=== PATIENT | female | born 1990 | race African-American/Black ===

== ENCOUNTER 2019-10-10 10:43 | Outpatient (RCR) | payer OTHER, SELFPAY | END 2020-01-08 23:59 | disposition home or self-care (01) | LOC: ANHLAB 10:43 | PROVIDERS: Visit Provider Obstetrics & Gynecology | DX: O20.0 Threatened abortion (principal); Z3A.00 Weeks of gestation of pregnancy not specified | CPT/HCPCS: 36415; 85461 ==

== ENCOUNTER 2020-04-25 05:58 | Observation (INO) | payer OTHER, MEDICAID, SELFPAY ==
[2020-04-25 06:16] VITALS: BP 131/97; PULSE 84
[2020-04-25 06:31] VITALS: BP 136/94; PULSE 75
[2020-04-25 06:45] VITALS: BMI 33.5
--- NOTE | 2020-04-25 06:45 | OBADM ---
This patient, Pita Bhandari, admitted to the OB room Labor/Delivery/Recovery 106 for observation. Patient/family oriented to hospital policies and general routines including ID bracelet, bed and alarms, visiting hours, pain management, procedures, bathroom and other care routines, personal items, smoking policy, room service/diet, and visiting hours. Patient/Family are encouraged to report perceived risks to care and to ask questions if they do not understand what they are told or what they should do.
[2020-04-25 06:46] VITALS: BP 117/91; PULSE 86
[2020-04-25 07:01] VITALS: BP 120/85; PULSE 80
[2020-04-25 07:20] VITALS: BP 124/83; PULSE 95
[2020-04-25 07:31] VITALS: BP 125/90; PULSE 88
[2020-04-25 07:33] LABS: Glucose Point of Care 90 (65-105)
--- NOTE | 2020-05-21 20:49 | PM.OBTRLD ---
OB - Triage/Final Diagnosis Evaluation Laboratory results: Laboratory Tests 04/25/20 07:26 POC Capillary Glucose 90 Final Diagnosis (1) contractions: Code(s): O47.9 - False labor, unspecified Status: Acute
== END 2020-04-25 07:51 | disposition home or self-care (01) ==
PROVIDERS: Admitting Provider Obstetrics & Gynecology; Visit Provider Obstetrics & Gynecology
DX: O47.9 False labor, unspecified (principal); Z3A.00 Weeks of gestation of pregnancy not specified
CPT/HCPCS: G0378; G0379

== ENCOUNTER 2020-05-07 13:41 | Inpatient (IN) | payer OTHER, MEDICAID, SELFPAY ==
[2020-05-07] VITALS (20 sets, daily range): BP systolic 123–142; BP diastolic 79–100; PULSE 88–105; TEMP 37.1; BMI 34.0
[2020-05-07] MEDS: LACTATED RINGERS 1,000 ML 125 ML IV CONT (16:26)
[2020-05-07] MEDS: AMPICILLIN 2 GM/NS 100 ML 2 GM/100 ML BAG IVPB (16:27)
[2020-05-07] MEDS: DINOPROSTONE 10 MG VAG INSERT VAGINAL (16:28)
[2020-05-07 16:40] LABS: Hematocrit 33.1 % (37.0-47.0); Hemoglobin 10.5 g/dL (12.0-15.0); Mean Corpuscular HGB Conc 31.7 g/dl (32-36); Mean Corpuscular Volume 85.1 fl (80-100); Mean Platelet Volume 10.6 fl (7.4-10.4); Platelet Count Result 257 k/mm3 (150-375); Red Blood Count 3.89 M/mm3 (4.2-5.4); Red Cell Distribution Width 16.9 % (11.5-14.5); White Blood Count 11.6 K/mm3 (4.5-10.0)
[2020-05-07 16:51] LABS: Alanine Aminotransferase 34 U/L (4-35); Albumin Level 3.5 g/dL (3.5-5.1); Alkaline Phosphatase 135 U/L (38-126); Anion Gap 7 mmol/L (8-16); Aspartate Amino Transferase 43 U/L (14-36); Bilirubin,Total 0.7 mg/dL (0.2-1.3); Blood Urea Nitrogen 6 mg/dL (7-17); Calcium 9.1 mg/dL (8.4-10.2); Carbon Dioxide 22 mmol/L (22-30); Chloride 103 mmol/L (98-107); Estimated Glomerular Filt Rate > 60; Glucose 108 mg/dL (65-105); Potassium 3.9 mmol/L (3.4-5.0); Sodium 132 mmol/L (137-145)
[2020-05-07 17:10] LABS: Total Cells Counted 100
[2020-05-07 17:11] LABS: Eosinophils Absolute Manual 0.34 K/mm3 (0.02-0.5); Eosinophils Percent Manual 3 % (0-4); Lymphocytes Absolute Manual 2.55 K/mm3 (1.1-4.5); Lymphocytes Percent Manual 22 % (18-44); Metamyelocytes Percent 3 %; Monocytes Absolute Manual 1.16 K/mm3 (0.1-0.90); Monocytes Percent Manual 10 % (3-9)
[2020-05-07 17:12] LABS: Neutrophils Percent Manual 62 % (46-73)
[2020-05-07 17:13] LABS: Atypical Lymphocytes Present; Platelet Estimate Adequate (Adequate)
--- NOTE | 2020-05-07 18:09 | WPDOBADMIT ---
Obstetrics - Admit Note Admission Note: record reviewed. No pertinent additions to the history and/or any subsequent changes in the physical findings that are not consistent with the expected course of the were found. Additions to the history and/or subsequent changes in the physical findings follow. PIH- mild pressures- normal labs. IOL. Cervix unfavorable, cervidil. Discussed POC with pt and RN. FHT category 1.
--- NOTE | 2020-05-07 19:25 | WPDANESEPP ---
Anes - Eval Pre Procedure Procedure: Labor epidural Date/Time: 05/07/20 19:25 Surgeon: Luis M Preop Diagnosis: Abd pain with contractions Pre Op Diagnosis: Induction of Labor Patient Data Age: 29 Gender: F Height: 5 ft 2 in Weight: 84.5 kg Last Vital Signs Pulse 105 H 05/07/20 19:00 BP 137/100 H 05/07/20 19:00 Allergies Allergy/AdvReac Type Severity Reaction Status Date / Time No Known Allergies Allergy Verified 05/07/20 13:59 Laboratory Tests 05/07/20 05/07/20 05/07/20 16:25 16:25 16:25 WBC 11.6 K/mm3 H K/mm3 (4.5-10.0) RBC 3.89 M/mm3 L M/mm3 (4.2-5.4) Hgb 10.5 g/dL L g/dL (12.0-15.0) Hct 33.1 % L % (37.0-47.0) MCV 85.1 fl fl (80-100) MCH 27.0 pg pg (26-34) MCHC 31.7 g/dl L g/dl (32-36) RDW 16.9 % H % (11.5-14.5) Plt Count 257 k/mm3 k/mm3 (150-375) MPV 10.6 fl H fl (7.4-10.4) Immature Gran % (Auto) Not Reportable Neut % (Auto) Not Reportable Lymph % (Auto) Not Reportable [place] % (Auto) Not Reportable Eos % (Auto) Not Reportable Baso % (Auto) Not Reportable Lymph # (Auto) Not Reportable [place] # (Auto) Not Reportable Eos # (Auto) Not Reportable Baso # (Auto) Not Reportable Abs Immat Gran (auto) Not Reportable Absolute Neuts (auto) Not Reportable Absolute Nucleated RBC Not Reportable Total Counted 100 Neutrophils % (Manual) 62 % % (46-73) Lymphocytes % (Manual) 22 % % (18-44) Monocytes % (Manual) 10 % H % (3-9) Eosinophils % (Manual) 3 % % (0-4) Metamyelocytes % 3 % % Nucleated RBC % Not Reportable Abs Lymphs (Manual) 2.55 K/mm3 K/mm3 (1.1-4.5) Abs Monocytes (Manual) 1.16 K/mm3 H K/mm3 (0.1-0.90) Absolute Eos (Manual) 0.34 K/mm3 K/mm3 (0.02-0.5) Atypical Lymphocytes Present Platelet Estimate Adequate (Adequate) Sodium Potassium Chloride Carbon Dioxide Anion Gap BUN Creatinine Estim Creat Clear Calc Estimated GFR Glucose Uric Acid Calcium Total Bilirubin AST ALT Alkaline Phosphatase Total Protein Albumin RPR Pending Blood Type O Positive Antibody Screen Negative 05/07/20 05/07/20 16:25 16:25 WBC RBC Hgb Hct MCV MCH MCHC RDW Plt Count MPV Immature Gran % (Auto) Neut % (Auto) Lymph % (Auto) [place] % (Auto) Eos % (Auto) Baso % (Auto) Lymph # (Auto) [place] # (Auto) Eos # (Auto) Baso # (Auto) Abs Immat Gran (auto) Absolute Neuts (auto) Absolute Nucleated RBC Total Counted Neutrophils % (Manual) Lymphocytes % (Manual) Monocytes % (Manual) Eosinophils % (Manual) Metamyelocytes % Nucleated RBC % Abs Lymphs (Manual) Abs Monocytes (Manual) Absolute Eos (Manual) Atypical Lymphocytes Platelet Estimate Sodium 132 mmol/L L mmol/L (137-145) Potassium 3.9 mmol/L mmol/L (3.4-5.0) Chloride 103 mmol/L mmol/L (98-107) Carbon Dioxide 22 mmol/L mmol/L (22-30) Anion Gap 7 mmol/L L mmol/L (8-16) BUN 6 mg/dL L mg/dL (7-17) Creatinine 0.50 mg/dL L mg/dL (0.7-1.0) Estim Creat Clear Calc Not Reportable Estimated GFR > 60 (59 - ) Glucose 108 mg/dL H mg/dL
[2020-05-07] MEDS: AMPICILLIN 1 GM/NS 50 ML 1 GM/50 ML BAG IVPB (21:00)
[2020-05-08] VITALS (127 sets, daily range): BP systolic 107–163; BP diastolic 67–107; PULSE 80–124; RESP 18–20; TEMP 36.6–37.1; O2SAT 95–100
[2020-05-08] MEDS: LACTATED RINGERS 1,000 ML 125 ML IV CONT ×2 (00:11→01:07)
[2020-05-08] MEDS: AMPICILLIN 1 GM/NS 50 ML 1 GM/50 ML BAG IVPB ×3 (01:05→09:15)
[2020-05-08] MEDS: OXYTOCIN 30 UNITS/NS 500 ML 30 UNITS/500 ML BAG IV CONT (02:44)
[2020-05-08 03:33] LABS: Glucose Point of Care 75 (65-105)
[2020-05-08 05:19] LABS: Glucose Point of Care 75 (65-105)
[2020-05-08 07:05] LABS: Rapid Plasma Reagin Non-Reactive (NonReactive)
--- NOTE | 2020-05-08 07:34 | PM.OBPNVD ---
OB - PN: Subj Subjective Date/time seen: 05/08/20 07:34 OB - PN: Obj Data Labs CBC & Chem 7: 05/07/20 16:25 05/07/20 16:25 Labs: Laboratory Results - last 24 hr 05/07/20 05/07/20 05/07/20 16:25 16:25 16:25 WBC 11.6 H RBC 3.89 L Hgb 10.5 L Hct 33.1 L MCV 85.1 MCH 27.0 MCHC 31.7 L RDW 16.9 H Plt Count 257 MPV 10.6 H Immature Gran % (Auto) Not Reportable Neut % (Auto) Not Reportable Lymph % (Auto) Not Reportable [place] % (Auto) Not Reportable Eos % (Auto) Not Reportable Baso % (Auto) Not Reportable Lymph # (Auto) Not Reportable [place] # (Auto) Not Reportable Eos # (Auto) Not Reportable Baso # (Auto) Not Reportable Abs Immat Gran (auto) Not Reportable Absolute Neuts (auto) Not Reportable Absolute Nucleated RBC Not Reportable Total Counted 100 Neutrophils % (Manual) 62 Lymphocytes % (Manual) 22 Monocytes % (Manual) 10 H Eosinophils % (Manual) 3 Metamyelocytes % 3 Nucleated RBC % Not Reportable Abs Lymphs (Manual) 2.55 Abs Monocytes (Manual) 1.16 H Absolute Eos (Manual) 0.34 Atypical Lymphocytes Present Platelet Estimate Adequate Sodium Potassium Chloride Carbon Dioxide Anion Gap BUN Creatinine Estim Creat Clear Calc Estimated GFR Glucose POC Capillary Glucose Uric Acid Calcium Total Bilirubin AST ALT Alkaline Phosphatase Total Protein Albumin RPR Non-reactive Blood Type O Positive Antibody Screen Negative 05/07/20 05/07/20 05/08/20 16:25 16:25 03:27 WBC RBC Hgb Hct MCV MCH MCHC RDW Plt Count MPV Immature Gran % (Auto) Neut % (Auto) Lymph % (Auto) [place] % (Auto) Eos % (Auto) Baso % (Auto) Lymph # (Auto) [place] # (Auto) Eos # (Auto) Baso # (Auto) Abs Immat Gran (auto) Absolute Neuts (auto) Absolute Nucleated RBC Total Counted Neutrophils % (Manual) Lymphocytes % (Manual) Monocytes % (Manual) Eosinophils % (Manual) Metamyelocytes % Nucleated RBC % Abs Lymphs (Manual) Abs Monocytes (Manual) Absolute Eos (Manual) Atypical Lymphocytes Platelet Estimate Sodium 132 L Potassium 3.9 Chloride 103 Carbon Dioxide 22 Anion Gap 7 L BUN 6 L Creatinine 0.50 L Estim Creat Clear Calc Not Reportable Estimated GFR > 60 Glucose 108 H POC Capillary Glucose 75 Uric Acid 4.0 Cancelled Calcium 9.1 Total Bilirubin 0.7 AST 43 H ALT 34 Alkaline Phosphatase 135 H Total Protein 7.0 Albumin 3.5 RPR Blood Type Antibody Screen 05/08/20 05:13 WBC RBC Hgb Hct MCV MCH MCHC RDW Plt Count MPV Immature Gran % (Auto) Neut % (Auto) Lymph % (Auto) [place] % (Auto) Eos % (Auto) Baso % (Auto) Lymph # (Auto) [place] # (Auto) Eos # (Auto) Baso # (Auto) Abs Immat Gran (auto) Absolute Neuts (auto) Absolute Nucleated RBC Total Counted Neutrophils % (Manual) Lymphocytes % (Manual) Monocytes % (Manual) Eosinophils % (Manual) Metamyelocytes % Nucleated RBC % Abs Lymphs (Manual) Abs Monocytes (Manual) Absolute Eos (Manual) Atypical Lymphocytes Platelet Estimate Sodium Potassium Chloride Carbon Dioxide Anion Gap BUN Creatinine Estim Creat Clear Calc Estimated GFR Glucose POC Capillary Glucose 75 Uric Acid Calcium Total Bilirubin AST ALT Alkaline Phosphatase Total Protein Albumin RPR Blood Type Antibody Screen OB - PN A/P Time Spent With Patient Time: Total time spent is greater than 50% in coordination of care (as documented) at patient's floor/unit and/or counseling patient:
--- NOTE | 2020-05-08 07:35 | PM.OBPNLAB ---
Pain Control Date/time seen: 05/08/20 07:35 pt comfortable, anticipate vaginal delivery
[2020-05-08 09:24] LABS: Glucose Point of Care 60 (65-105)
[2020-05-08] MEDS: ONDANSETRON INJ 4 MG/2 ML VIAL IV PUSH (11:40)
--- NOTE | 2020-05-08 13:09 | PM.OBPRVD ---
OB - Delivery Note Procedure Delivery date: 05/08/20 Procedure: vaginal delivery events: Gestational Diabetes and Induced HTN Intrapartal events: None Induction method: AROM and per pitocin protocol Delivery augmentation: rupture of membranes Delivery monitor: external FHT and internal uterine Route of delivery: Laceration Description: None Specimen: Yes Quantitative Blood Loss (ml): 42 Anesthesia type: Epidural Disposition: other () [place] Baby Date of : 05/08/20 Time of : 13:01 Weeks of gestation at delivery: 37 Infant gender: Female Weight (pounds): 7 Weight (ounces): 2 presentation: vertex position: Left Occiput Anterior Placenta delivery description: Spontaneous cord vessel description: 3 Vessels and Clamped/Cut score one minute: 8 score five minutes: 9 Narrative: mother and baby in stable condition
[2020-05-08] MEDS: OXYTOCIN 30 UNITS/NS 500 ML 30 UNITS/500 ML BAG 125 UNITS IV CONT (13:28)
[2020-05-08] MEDS: WITCH HAZEL 40 PADS 1 PAD TOPICAL (14:12)
[2020-05-08] MEDS: BENZOCAINE 20% AER SPR (*SP) 56 GM CAN 1 SPRAY TOPICAL (14:12)
[2020-05-08] MEDS: IBUPROFEN 600 MG TABLET PO ×2 (14:12→23:50)
[2020-05-09 05:03] LABS: Hemoglobin 9.1 g/dL (12.0-15.0)
[2020-05-09] MEDS: IBUPROFEN 600 MG TABLET PO ×2 (05:47→17:01)
--- NOTE | 2020-05-09 08:01 | PM.OBPNVD ---
OB - PN: Subj Subjective Date/time seen: 05/09/20 08:01 Patient comments: no complaints baby status: doing well OB - PN: Obj Data Labs CBC & Chem 7: 05/09/20 04:33 05/07/20 16:25 Labs: Laboratory Results - last 24 hr 05/08/20 05/09/20 09:17 04:33 Hgb 9.1 L Hct 28.0 L POC Capillary Glucose 60 L OB - PN A/P Plan day: 1 Plan: routine care Time Spent With Patient Time: Total time spent is greater than 50% in coordination of care (as documented) at patient's floor/unit and/or counseling patient: Time with patient: less than 15 minutes Review of Systems Review of Systems: All systems reviewed & are unremarkable except as noted in HPI and below Exam Narrative: Exam Narrative: Fundus firm and vaginal flow controlled. No lower ext redness, warmth, or edema. Negative homans. Denies h/a, v/d or e/p. Reflexes normal. Const: General: comfortable Chest: Breast/axilla inspection: normal inspection of the breasts Resp: Effort & Inspection: normal respiratory effort Cardio: Rate: regular rate GI: GI Palp: Yes Soft to palpation Psych: Appearance: grossly normal Affect: normal affect Attitude: cooperative Thought content: Yes Normal thought content present Judgement: Good judgement present (Psych)
[2020-05-09 08:10] VITALS: BP 133/83; PULSE 98; RESP 18; TEMP 36.8; O2SAT 100
--- NOTE | 2020-05-09 10:34 | WPDANLDPN2 ---
Anes-Prog Note L&D Date/Time: 05/09/20 10:34 Comfortable throughout: labor and delivery Neuraxial method: epidural Epidural/Spinal procedure site: clean & non-tender Neuro status: Neuro function grossly intact. Cardiovascular status: normal Respiratory status: normal Airway patency: baseline Mental status: baseline Post-Op hydration status: normal Vital Signs: Last Vital Signs Temp 36.8 C 05/09/20 08:10 Pulse 98 05/09/20 08:10 Resp 18 05/09/20 08:10 BP 133/83 05/09/20 08:10 Pulse Ox 100 05/09/20 08:10 Pain score (VAS): 0 Post-procedural complaints: none Patient feedback: Patient satisfied with anesthetic care.
--- NOTE | 2020-05-09 12:38 | PC.NURSE ---
Consulted with patient, reviewed feeding cues, frequencies, duration of feedings, feeding elimination flow sheet, and signs of adequate intake. Demonstrated stimulation techniques to wake for feeding. Assisted with to breast. Reviewed positioning/alignment, holding breast and asymmetrical latch on. was able to latch correctly. Infant nursed eagerly, with steady draws and occasional swallowing noted. Reviewed signs of a correct latch, effective nursing and suck swallow ratio. was able to maintain latch without discomfort to mother. Nipple care reviewed. Instructed mother to call out for RN assistance if she is unable to latch infant for feeding or she has discomfort with nursing. Instructed feeding should be initiated three hours from start of last feeding or if feeding cues are noted before. Mother voiced understanding of information shared.
[2020-05-09] MEDS: POLYSACCHARIDE IRON COMPLEX 150 MG CAPSULE PO (17:00)
[2020-05-09] MEDS: DOCUSATE SODIUM 100 MG CAPSULE PO (17:01)
[2020-05-09 20:00] VITALS: BP 134/93; PULSE 89; RESP 18; TEMP 37
--- NOTE | 2020-05-10 07:35 | PM.OBPNVD ---
OB - PN: Subj Subjective Date/time seen: 05/10/20 07:35 Patient comments: no complaints baby status: doing well [place] feeding status: breast and bottle feeding Narrative: E/A/V. OB - PN: Obj Data Labs CBC & Chem 7: 05/09/20 04:33 05/07/20 16:25 OB - PN A/P Plan day: 2 Plan: routine care and discharge home Time Spent With Patient Time: Total time spent is greater than 50% in coordination of care (as documented) at patient's floor/unit and/or counseling patient: Time with patient: less than 15 minutes Exam Narrative: Exam Narrative: NAD abdomen soft, nontender, fundus firm below the umbilicus Extremities nontender, 1+ edema
--- NOTE | 2020-05-10 07:39 | PM.OBDSVD ---
DS: Admitting Diagnosis Admitting Diagnosis Admitting Diagnosis: PIH at term DS: Discharge Diagnosis Discharge Diagnosis (1) Term delivered: Code(s): O80 - Encounter for full-term uncomplicated delivery Status: Acute OB - DS: Summary OB Procedures : None OB Procedures Intrapartum: Spontaneous Vag Delivery OB Procedures: : None Time Spent with Patient Time attestation: Total time spent providing and/or coordinating discharge services: Exam Narrative: Exam Narrative: NAD abdomen soft, appropriately tender Ext non tender, 1+ edema DS: Data Data Completed and Pending Pending studies at discharge: Pending at discharge 05/08/20 14:37 Surgical [PTH] Routine Discharge Plan Discharge Attending physician on discharge: Felicia Asencio Discharging Clinician: Felicia Asencio Anticipated Discharge Date/Time: 05/10/20 12:00 Patient Disposition: Home, Self-Care Activity: may shower and pelvic rest Diet: as tolerated Patient Instructions: Antibiotic Form Stand Alone Forms: General Discharge Information Follow-up/Referrals: Felicia Asencio MD [Physician] - (1 week) Date of admission: 05/07/20 13:41 Primary Care Provider: PHYSICIAN,BAILING MACHINE OPERATOR Admitting Provider: Manuela Gaona Attending physician on admission: Manuela Gaona Condition: Stable
[2020-05-10 08:40] VITALS: BP 128/90; PULSE 86; RESP 18; TEMP 36.8; O2SAT 100
[2020-05-10] MEDS: POLYSACCHARIDE IRON COMPLEX 150 MG CAPSULE PO (10:34)
[2020-05-10] MEDS: DOCUSATE SODIUM 100 MG CAPSULE PO (10:35)
[2020-05-10] MEDS: MULTIVIT/MIN/PREN/FOL AC/IRON TABLET 1 TAB PO (10:35)
--- NOTE | 2020-05-10 16:27 | PC.NURSE ---
1040 note; mother states she is putting to breast each feeding and then bottle feeding. Nurse assisted mother to get to breast, using football position; reviewed positioning, alignment, use of c-hold and nose to nipple latch on technique. baby able to latch easily with apparent deep latch and demonstrated rhythmic sucking. mother switched to second side, and latch did not seem as effective. Mother seemed resistive to more assistance. Nurse encouraged her to continue breast feeding each feeding, then supplementing, giving the amount she wants. Mother agreed. She was shown mother-baby guide breast feeding section for home reference and LC contact information. Mother mostly attentive, and seemed happy with her plan; she voiced understanding of information shared.
[2020-05-11 08:24] VITALS: BP 137/90; PULSE 82; RESP 20; TEMP 36.7; O2SAT 100
== END 2020-05-10 13:45 | disposition home or self-care (01) | DRG 807 ==
LOC: ANHOB2 05-10 07:38 → ANHLDR 05-14 10:23 → ANHOB2 05-14 10:23 → ANHOBPP 05-14 10:23
PROVIDERS: Advanced Practice Midwife; Obstetrics & Gynecology; Admitting Provider Obstetrics & Gynecology; Visit Provider Obstetrics & Gynecology
DX: O13.4 Gestational [pregnancy-induced] hypertension without significant proteinuria, complicating childbirth (principal); Z37.0 Single live birth; O24.429 Gestational diabetes mellitus in childbirth, unspecified control; O99.824 Streptococcus B carrier state complicating childbirth; O76 Abnormality in fetal heart rate and rhythm complicating labor and delivery; Z3A.37 37 weeks gestation of pregnancy
CPT/HCPCS: 36415; 80053; 84550; 85014; 85018; 85025; 86592; 86850; 86900; 86901; 88307; A9270; J0290; J2405; J2590; J2795; J7120

== ENCOUNTER 2021-05-29 07:01 | Observation (INO) | payer OTHER, MEDICAID, SELFPAY ==
[2021-05-29] VITALS (8 sets, daily range): BP systolic 117–130; BP diastolic 73–88; PULSE 88–102
--- NOTE | 2021-05-29 07:20 | OBADM ---
This patient, Pita Bhandari, admitted to the OB room Labor/Delivery/Recovery 105 for observation. Patient/family oriented to hospital policies and general routines including ID bracelet, bed and alarms, visiting hours, pain management, procedures, bathroom and other care routines, personal items, smoking policy, room service/diet, and visiting hours. Patient/Family are encouraged to report perceived risks to care and to ask questions if they do not understand what they are told or what they should do.
--- NOTE | 2021-05-29 08:42 | PM.IMHP ---
H&P: HPI History of Present Illness Date/Time: 05/29/21 08:42 This patient is a 30-year-old 4 para 3003 at 36 weeks gestation presented for contractions. She was painful contractions about every 5 minutes. She denies any loss of fluid or vaginal bleeding. She reports good movement. She denies any nausea vomiting fevers chills. She denies any headache, blurry vision, epigastric pain. She denies any chest pain or shortness of breath. Chief Complaint: Contractions Review of Systems Review of Systems: All systems reviewed & are unremarkable except as noted in HPI and below Constitutional: Constitutional: Denies chills, Denies fatigue, Denies fever(s) and Denies weakness Eyes: Eyes: Denies blurry vision, Denies change in vision, Denies loss of peripheral vision, Denies loss of vision, Denies other visual disturbances and Denies eye pain ENT: Denies vertigo, Denies dizziness, Denies hearing loss, Denies mouth pain, Denies nasal obstruction, Denies neck mass and Denies neck pain Cardiovascular: Cardiovascular: Denies chest pain, Denies diaphoresis, Denies syncope, Denies leg edema and Denies dyspnea Respiratory: Respiratory: Denies chest congestion, Denies cough, Denies hemoptysis, Denies dyspnea and Denies wheezing Gastrointestinal: Gastrointestinal: Denies abdominal pain, Denies constipation, Denies diarrhea, Denies nausea and Denies vomiting Genitourinary: Genitourinary: Denies hematuria, Denies change in libido, Denies nocturia, Denies genital lesions, Denies flank pain and Denies urinary urgency Musculoskeletal: Musculoskeletal: Denies abnormal gait, Denies back pain, Denies myalgias, Denies arthralgias, Denies joint swelling, Denies muscle weakness and Denies neck pain Integumentary/Breasts: Skin/Breast: Denies swelling, Denies breast pain, Denies breast mass, Denies dry skin, Denies nipple discharge, Denies unusual bruising and Denies jaundice Neurologic: Denies Neuro-related abnormal movements, Denies Abnormal speech present, Denies abnormal gait, Denies behavioral changes, Denies confusion, Denies vertigo, Denies dizziness, Denies syncope, Denies loss of vision, Denies memory loss, Denies convulsions and Denies weakness Psychiatric: Psychiatric: Denies abnormal sleep pattern, Denies behavioral changes, Denies change in libido, Denies confusion, Denies depression, Denies anhedonia and Denies memory loss Endocrine: Endocrine: Reports no additional endocrine complaints, Denies change in libido and Denies fatigue Hematologic/Lymphatic: Hematologic/Lymphatic: Reports no additional hematologic/lymphatic complaints Allergic/Immunologic: Allergic/Immunologic: Reports no additional allergic/immunologic complaints and Denies wheezing PMFSH Past Medical History Medical History Gestational diabetes Gestational hypertension and not yet delivered Family History Family History Grandparent Diabetes mellitus Hypertension Glaucoma Age-related cataract of both eyes Mother Hypertension Social History Social History Smoking status: Never smoker Substance use: never Spiritual care concerns: No Meds Home Medications and Allergies Allergies Allergy/AdvReac Type Severity Reaction Status Date / Time No Known Allergies Allergy Verified 05/07/20 13:59 Vital Signs Vital Signs - 24 hr 05/29/21 07:30 05/29/21 07:45 05/29/21 08:00 Pulse Rate 98 102 H 93 Blood Pressure 124/87 118/82 119/85 05/29/21 08:15 05/29/21 08:30 Pulse Rate 100 100 Blood Pressure 118/88 130/73 Exam Const: General: cooperative, healthy appearing, comfortable and no acute distress; No confusion Orientation/consciousness: oriented to person, oriented to place, oriented to time and No confusion HENMT: Head: normal to inspection Ears: external ears normal General nose exam: Normal external nose present Fa
== END 2021-05-29 09:36 | disposition home or self-care (01) ==
PROVIDERS: Admitting Provider Obstetrics & Gynecology; Visit Provider Obstetrics & Gynecology
DX: O47.03 False labor before 37 completed weeks of gestation, third trimester (principal); O24.419 Gestational diabetes mellitus in pregnancy, unspecified control; O13.3 Gestational [pregnancy-induced] hypertension without significant proteinuria, third trimester; Z3A.36 36 weeks gestation of pregnancy
CPT/HCPCS: G0378; G0379

== ENCOUNTER 2021-06-08 23:58 | Emergency (ER) | payer OTHER, MEDICAID, SELFPAY ==
--- NOTE | ~2021-06-08 | CT_ITS ---
EXAMINATION: CTA chest PE protocol DATE: 06/09/2021 02:31 INDICATION: Shortness of breath. Pleuritic chest pain. Elevated d-dimer. TECHNIQUE: Computed tomography (CT) pulmonary angiogram of the chest was performed with 100 mL Omnipa que-350 intravenous contrast. Additional 3D reconstructions utilizing coronal maximum intensity proje ction (MIP) were performed. Automated exposure control and iterative reconstruction technique were em ployed. The dose-length product was 444.04 mGy-cm. COMPARISON: None FINDINGS: Good contrast opacification of the pulmonary arteries. There is mild streak artifact from dense contr ast in the left brachiocephalic vein and superior vena cava. Mild scattered respiratory motion artifa ct which does not significantly limit evaluation. No pulmonary embolism. No pneumonia, pulmonary chanell a, pleural effusion or pneumothorax. A few small intrafissural lymph nodes along the right major and minor fissures. Heart size is normal. No pericardial effusion. Thoracic aorta is normal in caliber wi th no dissection. Increased soft tissue density in the anterior mediastinum which maintains a normal triangular morphology of the thymus. No pathologically enlarged thoracic lymphadenopathy. Bones are u nremarkable. IMPRESSION: 1. No pulmonary embolism or other acute cardiopulmonary disease. 2. Diffuse enlargement of the thymus which could be seen with either thymic hyperplasia or lymphoid h yperplasia. Reviewed, dictated and finalized at location A. GER LANGUAGE IMPRESSION: 1. No pulmonary embolism or other acute cardiopulmonary disease. 2. Diffuse enlargement of the thymus which could be seen with either thymic hyp erplasia or lymphoid hyperplasia.
[2021-06-08 23:59] VITALS: BP 137/88; PULSE 101; RESP 20; TEMP 36.4; O2SAT 100
--- NOTE | 2021-06-09 00:04 | ECG_ITS ---
Measurements Intervals [place] Rate: 109 P: 49 [place]: 145 QRS: 45 QRSD: 83 T: -23 QT: 300 QTc: 405 Interpretive Statements SINUS TACHYCARDIA BORDERLINE T WAVE ABNORMALITY- ANTEROLAT/INF LEADS BORDERLINE ECG Electronically Signed On 06-09-2021 6:18:06 PROFESSOR OF LAW by Mumtaz Stanton D.O.
--- NOTE | 2021-06-09 00:18 | PC.NURSE ---
RN called OB they would like to be called when pt is cleared by us and they will come down to evaluate the patient.
[2021-06-09 00:21] VITALS: BP 130/82; PULSE 109; RESP 18; TEMP 36.8; O2SAT 99
[2021-06-09 00:27] VITALS: RESP 20
[2021-06-09 00:30] VITALS: BP 130/82; PULSE 97; RESP 22; O2SAT 97
--- NOTE | 2021-06-09 00:33 | PC.NURSE ---
OB called prior to rooming pt in ED. Per superintendent container terminal, pt to be cleared by ED MD d/t chest pain and shortness of breath, and OB would come to monitor baby. Pt is currently 8 months with prior hx of preclampsia, htn, and gestational diabetes. ED MD also requesting that pt go to OB dept at this time.
--- NOTE | 2021-06-09 00:41 | ED.GENADULT ---
HPI - General Adult General Chief complaint: Shortness of Breath/Dyspnea Stated complaint: sob, chest pain Time Seen by Provider: 06/09/21 00:28 History of Present Illness HPI narrative: 30-year-old female that is 37 weeks presents to the emergency department for evaluation of substernal chest pain and shortness of breath that started approximately 930. Patient states she was lying down on her right side when she had onset of shortness of breath. Patient states that even though her oxygen is normal at present she feels that she still cannot take a deep breath. Patient denies any lower abdominal pain or vaginal bleeding. Patient denies any abdominal cramping. Patient is G4, P3 Related Data Allergies Allergy/AdvReac Type Severity Reaction Status Date / Time No Known Allergies Allergy Verified 06/02/21 08:47 Review of Systems Review of Systems: CONSTITUTIONAL: Denies fever, chills, or sweats. EYES: Denies visual changes, redness, or discharge. ENT: Denies rhinorrhea, congestion, sore throat, or otalgia. CARDIOVASCULAR: Did have some substernal chest pain with associated shortness of breath GASTROINTESTINAL: Denies abdominal pain, nausea, vomiting, or diarrhea. GENITOURINARY: Denies dysuria or hematuria. SKIN: Denies rash or itching. All systems reviewed & are unremarkable except as noted in HPI and below PMFSH Past Medical History Medical History Gestational diabetes Gestational hypertension and not yet delivered Family History Family History Grandparent Diabetes mellitus Hypertension Glaucoma Age-related cataract of both eyes Mother Hypertension Social History Social History (System 06/02/21 @ 08:47 by Nevin De León) Smoking status: Never smoker Substance use: never Spiritual care concerns: No Exam Narrative: APPEARANCE: Well appearing, no pain, no distress, well-nourished. HEAD: normocephalic, atraumatic. EYES: PERRLA/EOMI, conjunctivae clear. RESPIRATORY: Airway patent, respirations nonlabored. Clear to auscultation bilaterally, no rales, rhonchi, wheezing. CARDIOVASCULAR: Regular rate and rhythm without murmurs rubs or gallops. ABDOMINAL: Soft, nontender, nondistended, normal bowel sounds. Gravid abdomen MUSCULOSKELETAL: Moves all extremities. Strength/ROM intact, No edema, No calf tenderness. SKIN: Warm, dry. Normal Color PSYCHIATRIC: Normal affect/mood. Course Course Emergency Course: CT scan was ordered due to the patient's elevated D-dimer. During her stay in the emerge department patient did feel improved. Patient was updated the results of her imaging and CT results. Patient did have OB come down to do a nonstress test that was interpreted as no acute abnormality. Patient's MANAGER TRANSPORTATION was consulted and he was comfortable with the care provided and will see the patient as outpatient. Consultations Consultation #1: Case was discussed with the patient's MANAGER TRANSPORTATION, Dr. Gaona. He was updated on the work-up and the results of the PE study and nonstress test. Dr. Gaona was comfortable with the plan for discharge and close follow-up. Vital Signs Vital signs: Vital Signs Temperature 97.5 F L 06/08/21 23:59 Pulse Rate 101 H 06/08/21 23:59 Respiratory Rate 20 06/08/21 23:59 Blood Pressure 137/88 06/08/21 23:59 Pulse Oximetry 100 06/08/21 23:59 Temperature 98.2 F 06/09/21 00:21 Pulse Rate 94 06/09/21 04:00 Respiratory Rate 16 06/09/21 04:00 Blood Pressure 112/79 06/09/21 04:00 Pulse Oximetry 99 06/09/21 04:00 Medical Decision Making Vital Signs Vital Signs: Vital Signs Temperature 97.5 F L 06/08/21 23:59 Pulse Rate 101 H 06/08/21 23:59 Respiratory Rate 20 06/08/21 23:59 Blood Pressure 137/88 06/08/21 23:59 Pulse Oximetry 100 06/08/21 23:59 Temperature 98.2 F 06/09/21 00:21 Pulse Rate 94 06/09/21 04:00 Respira
[2021-06-09 00:47] LABS: Basophils Absolute Auto 0.1 K/mm3 (0.0-0.1); Eosinophils Absolute Auto 0.2 K/mm3 (0-0.3); Eosinophils Percent Auto 1.8 % (0-4.4); Hematocrit 31.9 % (37.0-47.0); Hemoglobin 9.7 g/dL (12.0-15.0); Immature Granulocyte Absolute 0.99 K/mm3 (0.00-0.031); Immature Granulocyte Percent A 10.8 % (0-0.5); Lymphocytes Absolute Auto 2.01 K/mm3 (0.9-3.2); Lymphocytes Percent Auto 21.9 % (18.3-44.2); Mean Corpuscular HGB Conc 30.4 g/dl (32-36); Mean Corpuscular Hemoglobin 24.6 pg (26-34); Mean Corpuscular Volume 80.8 fl (80-100); Mean Platelet Volume 10.6 fl (7.4-10.4); Monocytes Absolute Auto 0.9 K/mm3 (0.1-0.6); Monocytes Percent Auto 9.5 % (2.6-8.5); Neutrophils Absolute Auto 5.1 K/mm3 (1.3-6.7); Nucleated Red Blood Cells Perc 0.3 % (0.0-0.2); Platelet Count Result 261 k/mm3 (150-375); Red Blood Count 3.95 M/mm3 (4.2-5.4); Red Cell Distribution Width 17.6 % (11.5-14.5); White Blood Count 9.2 K/mm3 (4.5-10.0)
[2021-06-09 00:55] LABS: Alanine Aminotransferase 23 U/L (4-35); Albumin Level 3.7 g/dL (3.5-5.1); Alkaline Phosphatase 252 U/L (38-126); Anion Gap 4 mmol/L (8-16); Aspartate Amino Transferase 30 U/L (14-36); Bilirubin,Total 0.6 mg/dL (0.2-1.3); Blood Urea Nitrogen 6 mg/dL (7-17); Carbon Dioxide 22 mmol/L (22-30); Chloride 106 mmol/L (98-107); Estimated CRCL calculation 152 ml/min; Estimated Glomerular Filt Rate > 60; Glucose 100 mg/dL (65-110); Potassium 3.9 mmol/L (3.4-5.0); Sodium 132 mmol/L (137-145)
[2021-06-09] MEDS: ONDANSETRON HCL ODT 4 MG TABLET PO (00:59)
[2021-06-09 01:02] LABS: Burr Cells 1+ (NORMAL); Ovalocytes 1+ (NORMAL); Platelet Estimate Adequate (Adequate)
[2021-06-09 01:07] LABS: Troponin I < 0.012 ng/mL (0.000-0.034)
[2021-06-09 01:48] VITALS: BP 117/84; PULSE 91; RESP 26; O2SAT 98
[2021-06-09 02:11] LABS: Add Urine Microscopic? NO; Appearance Urine Clear (Clear); Bilirubin Urine Negative (Negative); Blood Urine Negative (Negative); Color Urine Yellow (Yellow); Glucose Urine UA Negative (Negative); Ketones Urine Negative (Negative); Leukocyte Esterase Ur Negative LEU/UL (Negative); Nitrate Urine Negative (Negative); Protein Urine Negative (Negative); Specific Grav Ur 1.008 (1.001-1.035); Urobilinogen Urine Negative mg/dL (<2.0)
[2021-06-09 02:26] LABS: SARS-CoV-2 RNA PCR Negative
[2021-06-09] MEDS: BELLADONNA ALK/PHENOB ELIX 10 ML, MAG HYDROX/ALUMINUM HYD/SIMETH 30 ML, LIDOCAINE HCL 2... PO (02:30)
[2021-06-09 03:34] LABS: Troponin I < 0.012 ng/mL (0.000-0.034)
[2021-06-09 04:00] VITALS: BP 112/79; PULSE 94; RESP 16; O2SAT 99
== END 2021-06-09 04:01 | disposition home or self-care (01) ==
PROVIDERS: Emergency Provider Emergency Medicine
DX: O26.893 Other specified pregnancy related conditions, third trimester (principal); R07.1 Chest pain on breathing; Z20.822 Contact with and (suspected) exposure to COVID-19; R00.0 Tachycardia, unspecified; R91.8 Other nonspecific abnormal finding of lung field; Z3A.37 37 weeks gestation of pregnancy
CPT/HCPCS: 36415; 71275; 80053; 81003; 84484; 85025; 85380; 93005; 99284; A9270; C9803; Q9967; U0003; U0005

== ENCOUNTER 2021-06-12 11:27 | Outpatient (CLI) | payer OTHER, MEDICAID, SELFPAY ==
[2021-06-12 12:19] LABS: Hematocrit 31.4 % (37.0-47.0); Hemoglobin 9.8 g/dL (12.0-15.0); Mean Corpuscular HGB Conc 31.2 g/dl (32-36); Mean Corpuscular Hemoglobin 24.6 pg (26-34); Mean Corpuscular Volume 78.9 fl (80-100); Mean Platelet Volume 10.2 fl (7.4-10.4); Platelet Count Result 293 k/mm3 (150-375); Red Blood Count 3.98 M/mm3 (4.2-5.4); Red Cell Distribution Width 17.8 % (11.5-14.5); White Blood Count 10.2 K/mm3 (4.5-10.0)
[2021-06-13 06:08] LABS: Rapid Plasma Reagin Non-Reactive (NonReactive)
== END 2021-06-12 11:28 | disposition home or self-care (01) ==
LOC: ANHLAB 11:31
PROVIDERS: Visit Provider Obstetrics & Gynecology
DX: O36.63X1 Maternal care for excessive fetal growth, third trimester, fetus 1 (principal); Z3A.38 38 weeks gestation of pregnancy
CPT/HCPCS: 36415; 85027; 86592; 86850; 86900; 86901

== ENCOUNTER 2021-06-13 04:43 | Inpatient (IN) | payer OTHER, MEDICAID, SELFPAY ==
--- NOTE | 2021-05-31 14:02 | PC.NURSE ---
Verified with OR schedule and patient--C/S on 06/13/21 at 0730 Patient given requisition for lab drawn on 06/12/21
[2021-06-13] VITALS (55 sets, daily range): BP systolic 90–138; BP diastolic 50–84; PULSE 60–105; RESP 14–18; TEMP 36.2–36.9; O2SAT 94–100; BMI 38.0
--- OUTSIDE RECORDS SUMMARY | 2021-06-13 04:49 | XMS_ITS | Encounter Summary ---
:1990 Author Reason for Visit OB visit Assessment and Plan 1. Large for gestation age fetus ? section (SURG) 2. Maternal history of gestation al diabetes Discussion Note: None recorded.Patient educational handouts: No information available. Plan of Care Reminders Provider Appointments Surg Post Op Irena Smith 06/20/2021 MD [place] 1:45PM Lab None ? ? recorded. Referral None ? ? recorded. Procedures None ? ? recorded. Surgeries [facility] (SURG) 06/13/2021 [place] [facility] None ? ? recorded. Medications Name Start Date ? ? ? Medications Administered None recorded. Vitals Height Weight BMI Blood Pressure 5 ft 3.75 in 204 lbs 35.3 kg/m2 120/84 mm[Hg] Results Lab Results None recorded. Allergies Code Code System Name Reaction Severity Onset NKDA ? ? ? Problems Name Status Onset Date Source ? Active 12/05/2020 ? Large for Gestation Age Fetus Active ? ? History
--- OUTSIDE RECORDS SUMMARY | 2021-06-13 04:49 | XMS_ITS | Encounter Summary ---
:1990 Author Reason for Visit OB visit 31w3d Assessment and Plan 1. Routine care Discussion Note: None recorded.Patient educational handouts: No information available. Plan of Care Reminders Provider Appointments Surg Post 06/20/2021 Mahendra Smith Op 1:45PM MD [place] Lab None ? ? recorded. Referral None ? ? recorded. Procedures None ? ? recorded. Surgeries None ? ? recorded. Imaging None ? ? recorded. Medications Name Start Date ? ? ? Medications Administered None recorded. Vitals Height Weight BMI Blood Pressure 5 ft 3.75 in 199 lbs 34.4 kg/m2 113/77 mm[Hg] Results Lab Results None recorded. Allergies Code Code System Name Reaction Severity Onset NKDA ? ? ? Problems Name Status Onset Date Source ? Active 12/05/2020 ? Large for Gestation Age Fetus Active ? ? History of Gestational Hypertension Active ? ? Maternal History of Gestational Diabetes Active ? ? Procedures Date Name Performed by ?
--- OUTSIDE RECORDS SUMMARY | 2021-06-13 04:49 | XMS_ITS | Encounter Summary ---
:1990 Author Reason for Visit OB visit Pt is here today for routine ob visit. 29.4 weeks. increased constipation with double iron tablet intake. Assessment and Plan 1. Routine care Discussion [...] BMI Blood Pressure 5 ft 3.75 in 201.4 lbs 34.8 kg/m2 118/80 mm[Hg] Results Lab Results None recorded. Allergies Code Code System Name Reaction Severity Onset NKDA ? ? ? Problems Name Status Onset Date Source ? Active 12/05/2020 ? Large for Gestation Age Fetus Active ? ? History of Gestational Hypertension Active ? ? Maternal History of Gestational Diabetes Active ? ? Procedures
--- OUTSIDE RECORDS SUMMARY | 2021-06-13 04:49 | XMS_ITS | Encounter Summary ---
:1990 Author Reason for Visit OB visit Assessment and Plan 1. Uterine size for dates discre pancy Discussion Note: None recorded.Patient educational handouts: No [...] BMI Blood Pressure 5 ft 3.75 in 205 lbs 35.5 kg/m2 128/85 mm[Hg] Results Lab Results None recorded. Allergies [...]
--- OUTSIDE RECORDS SUMMARY | 2021-06-13 04:49 | XMS_ITS | Encounter Summary ---
:1990 Author Reason for Visit OB visit Assessment and Plan Assessment Note Patient is ___weeks . Discu ssed plan. 1. Routine care Discussion Note: None recorded.Patient [...] BMI Blood Pressure 5 ft 3.75 in 208 lbs 36 kg/m2 124/87 mm[Hg] Results Lab Results None recorded. Allergies Code Code System Name Reaction Severity Onset NKDA ? ? ? Problems Name Status Onset Date Source ? Active 12/05/2020 ? Large for Gestation Age Fetus Active ? ? History of Gestational Hypertension Active ? ? Maternal History of Gestational Diabetes Active ? ? P
--- OUTSIDE RECORDS SUMMARY | 2021-06-13 04:49 | XMS_ITS | Encounter Summary ---
:1990 Author Reason for Visit None recorded. Assessment and Plan 1. Polyhydramnios ? US, obstetric, limited Discussion Note: None recorded.Patient educational handouts: No information available. Plan of Care Reminders Provider Appointments Surg Post Mahendra Smith Op 06/20/2021 MD [place] 1:45PM Lab None ? ? recorded. Referral None ? ? recorded. Procedures None ? ? recorded. Surgeries None ? ? recorded. Imaging , [facility], Limited 03/31/2021 Medications Name Start Date ? ? ? Medications Administered None recorded. Vitals None recorded. Results Lab Results None recorded. Allergies Code Code System Name Reaction Severity Onset NKDA ? ? ? Problems Name Status Onset Date Source ? Active 12/05/2020 ? Large for Gestation Age Fetus Active ? ? History of Gestational Hypertension Active ? ? Maternal History of Gestational Diabetes Active ? ? Procedures Date Name Performed by ?
--- OUTSIDE RECORDS SUMMARY | 2021-06-13 04:49 | XMS_ITS | Encounter Summary ---
:1990 Author Reason for Visit None recorded. Assessment and Plan 1. Uterine size for dates discre pancy ? US, obstetric, follow-up Discussion Note: None recorded.Patient educational handouts: No information available. Plan of Care Reminders Provider Appointments Surg Post 06/20/2021 Mahendra Gaona, Op 1:45PM Lab None ? ? recorded. Referral None ? ? recorded. Procedures None ? ? recorded. Surgeries None ? ? recorded. Imaging US, 05/27/2021 [facility], Follow-up Medications Name Start Date ? ? ? [...]
--- OUTSIDE RECORDS SUMMARY | 2021-06-13 04:49 | XMS_ITS | Encounter Summary ---
:1990 Author Reason for Visit OB visit 33W4D Assessment and Plan 1. Routine care Discussion Note: None recorded.Patient educational handouts: No information available. Plan of Care Reminders Provider Appointments Surg Post 06/20/2021 Maehndra Smith Op 1:45PM MD [place] Lab None ? ? recorded. Referral None ? ? recorded. Procedures None ? ? recorded. Surgeries None ? ? recorded. Imaging None ? ? recorded. Medications Name Start Date ? ? ? Medications Administered None recorded. Vitals Height Weight BMI Blood Pressure 5 ft 3.75 in 203 lbs 35.1 kg/m2 124/85 mm[Hg] Results Lab Results None recorded. Allergies [...]
--- OUTSIDE RECORDS SUMMARY | 2021-06-13 04:49 | XMS_ITS ---
:1990 Author Care Team Providers Name Role Phone Jam Gaona Primary Care Provider Unavailable Allergies Code Code System Name Reaction Severity Status Onset NKDA ? Medications Name Status Start Date Stop Date ? ? amoxicillin 875 mg tablet Completed ? 2020 TAKE 1 TABLET BY MOUTH EVERY 12 HOURS FOR 10 DAYS Boostrix Tdap 2.5 Lf unit-8 mcg-5 Lf/0.5 mL intramuscular syring e Completed ? 05/07/2020 PHARMACY ADMINISTERED fluticasone propionate 50 mcg/actuation nasal spray,suspension C ompleted ? 01/02/2021 SHAKE LIQUID AND USE 2 SPRAYS IN EACH NOSTRIL EVERY DAY FreeStyle Lancets 28 gauge Completed ? 05/24 TEST BS QID FreeStyle Lite Meter kit Completed ? 021 U UTD FreeStyle Lite Strips Completed ? 05/24/2020 TEST BS QID iron Completed ? 04/21/2021 Blisovi Fe 05/22 (28) 1 mg-20 mcg (21)/75 mg (7) tablet Active 06/08/2019 Not available take 1 tablet by oral route every day Metrogel Vaginal 0.75 % Completed ? 03/26/20 20 Insert 1 applicatorful every day by vaginal route at bedtime fo r 5 days. metronidazole 500 mg tablet Completed ? 12/2019 ondansetron 4 mg disintegrating tablet Completed ? 04/21/2021 DISSOLVE 2 TABLETS ON THE TONGUE THREE TIMES DAILY Active ? Not available Problems Name Status Onset Date Source ? Education Unknown 02/22/[address]
--- OUTSIDE RECORDS SUMMARY | 2021-06-13 04:50 | XMS_ITS | Encounter Summary ---
[...] BMI Blood Pressure 5 ft 3.75 in 200 lbs 34.6 kg/m2 126/84 mm[Hg] Results Lab Results None recorded. Allergies Code Code System Name Reaction Severity Onset NKDA ? ? ? Problems Name Status Onset Date Source ? Active 12/05/2020 ? Large for Gestation Age Fetus Active ? ? History of Gestational Hypertension Active ? ? Maternal History of Gestational Diabetes Active ? ? P
--- OUTSIDE RECORDS SUMMARY | 2021-06-13 04:50 | XMS_ITS | Encounter Summary ---
[...] Surgeries None ? ? recorded. Imaging US, 03/24/2021 [facility], Follow-up Medications Name Start Date ? [...]
[2021-06-13] MEDS: LACTATED RINGERS 1,000 ML 125 ML IV CONT (05:37)
--- NOTE | 2021-06-13 05:56 | WPDANESEPP ---
Anes - Eval Pre Procedure Procedure: Operation Date: 06/13/21 07:30 Proposed Procedures p Section - Manuela Gaona MD Date/Time: 06/13/21 05:56 Pre Op Diagnosis: Primary C/S Patient Data Age: 30 Gender: F Height: 1.57 m Weight: 94.5 kg Last Vital Signs Pulse 99 06/13/21 05:45 BP 127/83 06/13/21 05:45 Allergies Allergy/AdvReac Type Severity Reaction Status Date / Time No Known Allergies Allergy Verified 06/02/21 08:47 Patient hx anesthesia problems: none Family hx anesthesia problems: none Results Review: All pre-operative results and documents have been reviewed as part of the pre-operative evaluation. [facility] Past Medical History Medical History Gestational diabetes Gestational hypertension and not yet delivered Family History Family History Grandparent Diabetes mellitus Hypertension Glaucoma Age-related cataract of both eyes Mother Hypertension Mother Hypertension Grandparent Diabetes mellitus Hypertension Social History Social History Smoking status: Never smoker Second hand tobacco smoke exposure: No Substance use: never Spiritual care concerns: No Exam Day of Procedure 06/13/21 05:56
--- NOTE | 2021-06-13 06:50 | PM.IMHP ---
H&P: HPI History of Present Illness Date/Time: 06/13/21 06:50 This patient is a 30-year-old female who presents for primary delivery. She is a multip at 39 weeks with a macrosomic baby. She understands the error and a 3rd trimester ultrasound for estimated weight. She understands risks of delivery that include injury and the consequence of injury : Hospitalization, more surgery, severe illness. She understands the risk of infection and hemorrhage. She denies any signs of labor, she denies any nausea, vomiting, fever, chills. She denies any chest pain or shortness of breath. Chief Complaint: Term gestation Review of Systems Review of Systems: All systems reviewed & are unremarkable except as noted in HPI and below Constitutional: Constitutional: Denies chills, Denies fatigue, Denies fever(s) and Denies weakness Eyes: Eyes: Denies blurry vision, Denies change in vision, Denies loss of peripheral vision, Denies loss of vision, Denies other visual disturbances and Denies eye pain ENT: Denies vertigo, Denies dizziness, Denies hearing loss, Denies mouth pain, Denies nasal obstruction, Denies neck mass and Denies neck pain Cardiovascular: Cardiovascular: Denies chest pain, Denies diaphoresis, Denies syncope, Denies leg edema and Denies dyspnea Respiratory: Respiratory: Denies chest congestion, Denies cough, Denies hemoptysis, Denies dyspnea and Denies wheezing Gastrointestinal: Gastrointestinal: Denies abdominal pain, Denies constipation, Denies diarrhea, Denies nausea and Denies vomiting Genitourinary: Genitourinary: Denies hematuria, Denies change in libido, Denies nocturia, Denies genital lesions, Denies flank pain and Denies urinary urgency Musculoskeletal: Musculoskeletal: Denies abnormal gait, Denies back pain, Denies myalgias, Denies arthralgias, Denies joint swelling, Denies muscle weakness and Denies neck pain Integumentary/Breasts: Skin/Breast: Denies swelling, Denies breast pain, Denies breast mass, Denies dry skin, Denies nipple discharge, Denies unusual bruising and Denies jaundice Neurologic: Denies Neuro-related abnormal movements, Denies Abnormal speech present, Denies abnormal gait, Denies behavioral changes, Denies confusion, Denies vertigo, Denies dizziness, Denies syncope, Denies loss of vision, Denies memory loss, Denies convulsions and Denies weakness Psychiatric: Psychiatric: Denies abnormal sleep pattern, Denies behavioral changes, Denies change in libido, Denies confusion, Denies depression, Denies anhedonia and Denies memory loss Endocrine: Endocrine: Reports no additional endocrine complaints, Denies change in libido and Denies fatigue Hematologic/Lymphatic: Hematologic/Lymphatic: Reports no additional hematologic/lymphatic complaints Allergic/Immunologic: Allergic/Immunologic: Reports no additional allergic/immunologic complaints and Denies wheezing PMFSH Past Medical History Medical History Gestational diabetes Gestational hypertension and not yet delivered Family History Family History Grandparent Diabetes mellitus Hypertension Glaucoma Age-related cataract of both eyes Mother Hypertension Mother Hypertension Grandparent Diabetes mellitus Hypertension Social History Social History Smoking status: Never smoker Second hand tobacco smoke exposure: No Substance use: never Spiritual care concerns: No Meds Home Medications and Allergies Allergies Allergy/AdvReac Type Severity Reaction Status Date / Time No Known Allergies Allergy Verified 06/02/21 08:47 Vital Signs Vital Signs - 24 hr 06/13/21 05:00 06/13/21 05:01 06/13/21 05:15 Pulse Rate 105 H 105 H 100 Blood Pressure 122/83 121/84 114/83 06/13/21 05:30 06/13/21 05:45 06/13/21 06:00 Pulse Rate 101 H 99 95 Blood Pressure
[2021-06-13] MEDS: ceFAZolin 2 GM/D5W 50 ML 2 GM/50 ML BAG IVPB (06:52)
--- NOTE | 2021-06-13 06:53 | WPDHPUPDATE1 ---
History and Physical Update Update Date/Time: 06/13/21 06:53 History and Physical has been reviewed, including an updated exam of the patient. There are NO changes in the patient's condition. Risks, benefits, and alternatives have been discussed and questions answered. Patient agrees to proceed with procedure.
--- NOTE | 2021-06-13 08:14 | W.PM.PROC2 ---
Procedure Note - Detailed Date of Procedure 06/13/21 Pre-op Diagnosis Primary C/S, Macrosomia Post-op Diagnosis same Procedure Performed Low-transverse section Surgeon Manuela Gaona MD Anesthesia spinal Indications macrosomia Findings Normal gestational maternal anatomy, above average size infant, normal Apgars. Description of Procedure The patient was taken the operating room. She was prepped and draped in dorsal supine position with a leftward tilt. This was done after spinal anesthetic was applied. A low-transverse skin incision was made and carried down till of the fascia with the knife. The fascial incision was made with the knife. The fascial incision was extended laterally with Freed scissors. The fascia was tented upward superiorly and inferiorly the rectus muscles were dissected off bluntly. The rectus muscles were the midline. The preperitoneal fat and peritoneum were dissected open bluntly at the superior aspect of the rectus muscles. The peritoneal incision was extended superior and inferior with good position of bladder. The uterine incision was made with a scalpel down to the level of the amniotic cavity. The amniotic cavity was entered bluntly. The was delivered. The cord was clamped and cut and the was handed off to waiting pediatric staff. Cord bloods were obtained. The placenta was removed manually. The uterus was exteriorized. The uterus was cleared of all clots, debris and membranes. The uterus was closed in 0 Vicryl running lock fashion. An imbricating over a was placed along the incision line as well. The uterus was returned to the abdomen. The gutters were cleared of all clots and debris. The fascia was closed with 0 Vicryl running fashion. The subcutaneous tissue was irrigated pinpoint bleeders were cauterized. The skin was closed with subcuticular absorbable fabrizio. The skin incision line was covered with glue. The patient tolerated the procedure well. She has taken recovery room in stable condition. Sponge lap and needle counts were correct x2. Estimated Blood Loss -710.0 Pathology none sent Complications No immediate complications Condition stable Disposition PACU
[2021-06-13] MEDS: OXYTOCIN 30 UNITS/NS 500 ML 30 UNITS/500 ML BAG 125 UNITS IV CONT (08:46)
[2021-06-13] MEDS: LORATADINE 10 MG TABLET PO (09:00)
[2021-06-13] MEDS: ONDANSETRON INJ 4 MG/2 ML VIAL IV PUSH (09:41)
--- NOTE | 2021-06-13 10:47 | OBPPTRN ---
1000 Patient transferred to post room #282 via stretcher. Support person present. Oriented to unit, room, information board, rooming in, admission packet and security measures. Patient verbalizes understanding.
[2021-06-13] MEDS: diphenhydrAMINE HCl INJ 50 MG/ML VIAL 25 MG IV PUSH (12:19)
[2021-06-13] MEDS: DEXTROSE 5%/0.45% SOD CHL 1,000 ML 125 ML IV CONT (12:57)
[2021-06-13] MEDS: KETOROLAC 30 MG/ML VIAL (*BKC) IV PUSH (15:46)
[2021-06-13] MEDS: HYDROcodone/acetaminophen (*CRX) 5-325 MG TABLET 1 TAB PO (20:18)
[2021-06-13] MEDS: diphenhydrAMINE HCl CAP 25 MG CAPSULE PO (21:01)
[2021-06-14] MEDS: HYDROcodone/acetaminophen (*CRX) 5-325 MG TABLET 1 TAB PO ×5 (00:24→20:00)
[2021-06-14] MEDS: IBUPROFEN 600 MG TABLET PO ×4 (00:24→19:59)
[2021-06-14 04:40] VITALS: BP 113/58; PULSE 82; RESP 16; TEMP 36.8
[2021-06-14 05:21] LABS: Basophils Absolute Auto 0.1 K/mm3 (0.0-0.1); Basophils Percent Auto 0.5 % (0.2-1.2); Eosinophils Absolute Auto 0.2 K/mm3 (0-0.3); Eosinophils Percent Auto 1.3 % (0-4.4); Hematocrit 27.6 % (37.0-47.0); Hemoglobin 8.7 g/dL (12.0-15.0); Immature Granulocyte Absolute 0.54 K/mm3 (0.00-0.031); Immature Granulocyte Percent A 4.6 % (0-0.5); Lymphocytes Absolute Auto 2.04 K/mm3 (0.9-3.2); Lymphocytes Percent Auto 17.3 % (18.3-44.2); Mean Corpuscular HGB Conc 31.5 g/dl (32-36); Mean Corpuscular Volume 79.3 fl (80-100); Mean Platelet Volume 10.2 fl (7.4-10.4); Monocytes Absolute Auto 1.4 K/mm3 (0.1-0.6); Monocytes Percent Auto 11.9 % (2.6-8.5); Neutrophils Absolute Auto 7.6 K/mm3 (1.3-6.7); Neutrophils Percent Auto 64.4 % (45.5-73.1); Platelet Count Result 256 k/mm3 (150-375); Red Blood Count 3.48 M/mm3 (4.2-5.4); Red Cell Distribution Width 17.7 % (11.5-14.5); White Blood Count 11.8 K/mm3 (4.5-10.0)
[2021-06-14 08:00] VITALS: BP 110/68; PULSE 83; RESP 18; TEMP 36.3; O2SAT 98
--- NOTE | 2021-06-14 08:02 | PM.OBPNVD ---
OB - PN: Subj Subjective Date/time seen: 06/14/21 08:02 Patient comments: no complaints, pain well controlled, tolerating diet and flatus present OB - PN: Obj Data Labs CBC & Chem 7: 06/14/21 04:45 Labs: Laboratory Results - last 24 hr 06/14/21 04:45 WBC 11.8 H RBC 3.48 L Hgb 8.7 L Hct 27.6 L MCV 79.3 L MCH 25.0 L MCHC 31.5 L RDW 17.7 H Plt Count 256 MPV 10.2 Immature Gran % (Auto) 4.6 H Neut % (Auto) 64.4 Lymph % (Auto) 17.3 L Gonzales % (Auto) 11.9 H Eos % (Auto) 1.3 Baso % (Auto) 0.5 Lymph # (Auto) 2.04 Gonzales # (Auto) 1.4 H Eos # (Auto) 0.2 Baso # (Auto) 0.1 Abs Immat Gran (auto) 0.54 H Absolute Neuts (auto) 7.6 H Absolute Nucleated RBC 0.0 Nucleated RBC % 0.0 OB - PN A/P Plan day: 1 Comments: Post Op LTCS - no problems, routine recovery Time Spent With Patient Time: Total time spent is greater than 50% in coordination of care (as documented) at patient's floor/unit and/or counseling patient: Exam Const: General: cooperative, healthy appearing, comfortable and no acute distress Resp: Auscultation: no crackles, no rales, no rhonchi and no wheezes Cardio: Rhythm: regular rhythm Heart sounds: no click and no murmurs GI: Inspection: non-distended Auscultation: normal bowel sounds Extrem: General: normal to inspection, no pedal edema and no calf tenderness
--- NOTE | 2021-06-14 08:04 | WPDANLDPN2 ---
Anes-Prog Note L&D Date/Time: 06/14/21 08:04 Comfortable throughout: section Neuraxial method: spinal Epidural/Spinal procedure site: clean & non-tender Neuro status: Neuro function grossly intact. Cardiovascular status: normal Respiratory status: normal Airway patency: baseline Mental status: baseline Post-Op hydration status: normal Vital Signs: Last Vital Signs Temp 36.8 C 06/14/21 04:40 Pulse 82 06/14/21 04:40 Resp 16 06/14/21 04:40 BP 113/58 L 06/14/21 04:40 Pulse Ox 99 06/13/21 23:15 Pain score (VAS): 0 I/O: Intake & Output 06/13/21 06/14/21 06/14/21 23:59 07:59 15:59 Intake Total 1000 900 Output Total 1650 Balance 1000 -750 Post-procedural complaints: none Patient feedback: Patient satisfied with anesthetic care.
--- NOTE | 2021-06-14 08:05 | WPDANLDNPN2 ---
Anes-Prog Note L&D-Neuraxial Date/Time: 06/14/21 08:05 Neuraxial medications: intrathecal PF morphine Opiod-related complaints: none Patient feedback: Patient satisfied with post-operative pain management.
[2021-06-14] MEDS: MULTIVIT/MIN/PREN/FOL AC/IRON TABLET 1 TAB PO (08:15)
[2021-06-14] MEDS: POLYSACCHARIDE IRON COMPLEX 150 MG CAPSULE PO ×2 (08:15→16:57)
[2021-06-14] MEDS: DOCUSATE SODIUM 100 MG CAPSULE PO ×2 (08:15→16:57)
[2021-06-14] MEDS: TETANUS,DIPHTHERIA,AC PERTUSSIS ADULT (0.5 ML) BOOSTRIX IM (08:17)
[2021-06-14 16:00] VITALS: PULSE 90; RESP 18; TEMP 36.5; O2SAT 100
[2021-06-14 20:00] VITALS: BP 122/79; PULSE 99; RESP 16; TEMP 37.2
[2021-06-14] MEDS: HYDROcodone/acetaminophen (*CRX) 10-325 MG TABLET 1 TAB PO (22:56)
[2021-06-14 23:30] VITALS: BP 121/59; PULSE 89; RESP 16; TEMP 37.1
[2021-06-15] MEDS: HYDROcodone/acetaminophen (*CRX) 10-325 MG TABLET 1 TAB PO ×2 (02:29→04:58)
[2021-06-15] MEDS: IBUPROFEN 600 MG TABLET PO ×2 (02:29→08:33)
[2021-06-15 05:05] VITALS: BP 101/63; PULSE 76; RESP 18; TEMP 36.8
--- NOTE | 2021-06-15 07:43 | PM.OBPNVD ---
OB - PN: Subj Subjective Date/time seen: 06/15/21 07:43 Patient comments: no complaints, pain well controlled, incisional pain, tolerating diet and flatus present OB - PN: Obj Data Labs CBC & Chem 7: 06/14/21 04:45 OB - PN A/P Plan day: 2 Plan: routine care Comments: POD#2 LTCS - no problems, Time Spent With Patient Time: Total time spent is greater than 50% in coordination of care (as documented) at patient's floor/unit and/or counseling patient: Exam Const: General: comfortable, no acute distress and alert Resp: Effort & Inspection: normal respiratory effort Auscultation: no crackles, no rales and no rhonchi Cardio: Rate: regular rate Heart sounds: no click, no murmurs and no rubs GI: Inspection: non-distended GI Palp: No Tenderness to palpation present (GI) Auscultation: normal bowel sounds Other: Incision - CDI Extrem: General: normal to inspection, no pedal edema and no calf tenderness
--- NOTE | 2021-06-15 07:44 | P.DS_ITS ---
DS: Admitting Diagnosis Discharge Date 06/15/2021 Admitting Diagnosis macrosomia DS: Discharge Diagnosis Discharge Diagnosis (1) Term : Code(s): Z34.90 - Encounter for supervision of normal , unspecified, unspecified trimester Status: Acute (2) Macrosomia: Code(s): P08.0 - Exceptionally large baby Status: Acute OB - DS: Summary OB Procedures : None OB Procedures Intrapartum: OB Procedures: : None Peripartum Data Procedures: Procedures Operation Date: 06/13/21 07:30 Actual Procedure Side Surgeon p Section Not Applicable Manuela Gaona MD Time Spent with Patient Time attestation: Total time spent providing and/or coordinating discharge services: Discharge Plan Discharge Discharging Clinician: Manuela Gaona Patient Disposition: Home, Self-Care Activity: pelvic rest Diet: regular Patient Instructions: Antibiotic Form Stand Alone Forms: General Discharge Information Follow-up/Referrals: Manuela Gaona MD [Physician] - Discharge Medications: New hydrocodone-acetaminophen 5-325 mg tablet 1 tablet PO Q4H PRN (Reason: pain) Qty: 25 RF: 0 Date of admission: 06/13/21 04:43 Primary Care Provider: PHYSICIAN,BUILDING RENTAL SUPERINTENDENT Admitting Provider: Manuela Gaona Attending physician on admission: Manuela Gaona Condition: Stable
[2021-06-15 08:15] VITALS: BP 123/79; PULSE 65; RESP 16; TEMP 36.3; O2SAT 99
[2021-06-15] MEDS: POLYSACCHARIDE IRON COMPLEX 150 MG CAPSULE PO (08:32)
[2021-06-15] MEDS: HYDROcodone/acetaminophen (*CRX) 5-325 MG TABLET 1 TAB PO (08:33)
[2021-06-15] MEDS: MULTIVIT/MIN/PREN/FOL AC/IRON TABLET 1 TAB PO (08:33)
[2021-06-15] MEDS: DOCUSATE SODIUM 100 MG CAPSULE PO (08:33)
--- NOTE | 2021-06-15 10:55 | PC.NURSE ---
Patient viewed the discharge video [facility], The First Two Weeks . Patient was given the opportunity and encouraged to ask questions. Patient verbalized understanding of information shared and has been given the mother/baby guide for home reference.
[2021-06-16 08:22] VITALS: BP 122/80; PULSE 85; RESP 16; TEMP 37.1; O2SAT 98
== END 2021-06-15 11:37 | disposition home or self-care (01) | DRG 788 ==
LOC: ANHLDR 04:55 → ANHOB2 10:51
PROVIDERS: Admitting Provider Obstetrics & Gynecology; Visit Provider Obstetrics & Gynecology
PROC: 10D00Z1 Extraction of Products of Conception, Low, Open Approach (ICD-10-PCS; CPT 59514; principal; 2021-06-13 07:30)
DX: O36.63X0 Maternal care for excessive fetal growth, third trimester, not applicable or unspecified (principal); Z37.0 Single live birth; Z3A.39 39 weeks gestation of pregnancy; O24.429 Gestational diabetes mellitus in childbirth, unspecified control
CPT/HCPCS: 36415; 85025; 90715; A9270; J0131; J0690; J1200; J1885; J2274; J2370; J2405; J2590; J7120

== ENCOUNTER 2021-09-05 01:29 | Emergency (ER) | payer OTHER, MEDICAID, SELFPAY ==
--- NOTE | ~2021-09-05 | XR_ITS ---
EXAMINATION: XR chest 2V DATE: 09/05/2021 02:00 INDICATION: Chest pain TECHNIQUE: PA and lateral views of the chest are obtained. COMPARISON: None available FINDINGS: The lungs are free of acute opacities. There is no pleural effusion or pneumothorax. The ca rdiomediastinal silhouette is normal. The visualized bones and soft tissues are unremarkable. IMPRESSION: 1. No acute cardiopulmonary abnormality. Reviewed, dictated and finalized at location A.
[2021-09-05 01:30] VITALS: BP 148/90; PULSE 75; RESP 18; TEMP 36.5; O2SAT 100
--- NOTE | 2021-09-05 01:35 | ECG_ITS ---
Measurements Intervals [facility] Rate: 72 P: 49 NV: 185 QRS: 40 QRSD: 92 T: 25 QT: 365 QTc: 399 Interpretive Statements SINUS RHYTHM WITH SINUS ARRHYTHMIA T WAVE ABNORMALITY IN ANTEROLATERAL LEADS- CONSIDER ISCHEMIA ABNORMAL ECG Electronically Signed On 09-05-2021 6:42:08 CDT by Mumtaz Stanton D.O.
[2021-09-05 01:43] VITALS: O2SAT 98
--- NOTE | 2021-09-05 01:49 | ED.CHESTPAIN ---
HPI - Chest Pain General Chief Complaint: Chest Pain Stated Complaint: chest pain sob Time Seen by Provider: 09/05/21 01:42 Source: patient History of Present Illness HPI narrative: Patient presents with chest pain for 2 days. Pain is made him constant however is worse tonight she had increased pain with breathing. Pain is achy, constant, radiates to her back and is causing a headache. Given it was worsening she came to the ER for evaluation. Denies any shortness of breath lightheadedness or dizziness. She does report a mild cough. Denies any abdominal pain nausea vomiting or urinary symptoms. Denies any known sick contacts or fevers. Related Data Allergies Allergy/AdvReac Type Severity Reaction Status Date / Time No Known Allergies Allergy Verified 09/05/21 01:48 Review of Systems Review of Systems: CONSTITUTIONAL: Denies fever, chills, or sweats. EYES: Denies visual changes, redness, or discharge. ENT: Denies rhinorrhea, congestion, sore throat, or otalgia. CARDIOVASCULAR: Denies palpitations, or edema. RESPIRATORY: Denies dyspnea. GASTROINTESTINAL: Denies abdominal pain, nausea, vomiting, or diarrhea. GENITOURINARY: Denies dysuria or hematuria. SKIN: Denies rash or itching. MUSCULOSKELETAL: Denies back pain, joint pain, or myalgia. NEUROLOGIC: Denies headache, numbness, dizziness, or weakness. PSYCHIATRIC: Denies anxiety or depression. All systems reviewed & are unremarkable except as noted in HPI and below PMFSH Past Medical History Medical History Gestational diabetes Gestational hypertension and not yet delivered Family History Family History Grandparent Diabetes mellitus Hypertension Glaucoma Age-related cataract of both eyes Mother Hypertension Mother Hypertension Grandparent Diabetes mellitus Hypertension Social History Social History Smoking status: Never smoker Second hand tobacco smoke exposure: No Substance use: never Spiritual care concerns: No Exam Narrative: GENERAL: Well-appearing, well-nourished, and in no acute distress. HEAD: Normocephalic, atraumatic. EYES: PERRLA and EOMI. ENT: Nares clear, no rhinorrhea or epistaxis. Mucous membranes moist. NECK: Supple. No masses. No JVD CHEST: Clear to auscultation. No respiratory distress. No wheezes rales or rhonchi HEART: Regular rate and rhythm. No murmur heard. Normal peripheral pulses. ABDOMEN: Soft, nontender, nondistended, normal active bowel sounds. EXTREMITIES: Normal range of motion. No edema. SKIN: Warm, dry, no rash. NEURO: No focal deficits. Alert and oriented x3. PSYCH: Normal mood and affect. Course Reevaluation(s) Reevaluation #1: Patient resting comfortably results and plan reviewed with patient. Patient is comfortable outpatient plan. Date: 09/05/21 Time: 03:03 Vital Signs Vital signs: Vital Signs Temperature 36.5 C 09/05/21 01:30 Pulse Rate 75 09/05/21 01:30 Respiratory Rate 18 09/05/21 01:30 Blood Pressure 148/90 H 09/05/21 01:30 Pulse Oximetry 100 09/05/21 01:30 Temperature 36.5 C 09/05/21 01:30 Pulse Rate 87 09/05/21 03:28 Respiratory Rate 16 09/05/21 03:28 Blood Pressure 134/92 H 09/05/21 03:28 Pulse Oximetry 100 09/05/21 03:28 MDM - Chest Pain MDM Narrative Medical decision making narrative: H&P as above, vss, pt looks clinically well, exam with clear lungs, labs clinically unremarkable to include a negative dimer and troponin after days of symptoms, img without acute process, additional labs/img considered, symptomatic relief available as needed, on reevaluation pt continues to looks clinically well. Symptoms remain of unclear etiology, dns ACS, PE, dissection, pneumothorax. plan to tx/monitor as op w/ pcm f/u findings/plan discussed with pt, pt agree/comfortable with plan, return p
[2021-09-05 01:55] LABS: Basophils Absolute Auto 0.1 K/mm3 (0.0-0.1); Basophils Percent Auto 0.6 % (0.2-1.2); Eosinophils Absolute Auto 0.2 K/mm3 (0-0.3); Eosinophils Percent Auto 2.6 % (0-4.4); Hematocrit 35.6 % (37.0-47.0); Hemoglobin 11.2 g/dL (12.0-15.0); Immature Granulocyte Absolute 0.04 K/mm3 (0.00-0.031); Immature Granulocyte Percent A 0.5 % (0-0.5); Lymphocytes Absolute Auto 3.33 K/mm3 (0.9-3.2); Lymphocytes Percent Auto 42.7 % (18.3-44.2); Mean Corpuscular HGB Conc 31.5 g/dl (32-36); Mean Corpuscular Hemoglobin 27.4 pg (26-34); Mean Platelet Volume 9.1 fl (7.4-10.4); Monocytes Absolute Auto 0.7 K/mm3 (0.1-0.6); Monocytes Percent Auto 8.3 % (2.6-8.5); Neutrophils Absolute Auto 3.5 K/mm3 (1.3-6.7); Neutrophils Percent Auto 45.3 % (45.5-73.1); Platelet Count Result 351 k/mm3 (150-375); Red Blood Count 4.09 M/mm3 (4.2-5.4); Red Cell Distribution Width 19.1 % (11.5-14.5); White Blood Count 7.8 K/mm3 (4.5-10.0)
[2021-09-05 02:05] LABS: Alanine Aminotransferase 71 U/L (4-35); Albumin Level 4.7 g/dL (3.5-5.1); Alkaline Phosphatase 87 U/L (38-126); Anion Gap 7 mmol/L (8-16); Aspartate Amino Transferase 53 U/L (14-36); Bilirubin,Total 0.4 mg/dL (0.2-1.3); Blood Urea Nitrogen 15 mg/dL (7-17); Calcium 8.7 mg/dL (8.4-10.2); Carbon Dioxide 22 mmol/L (22-30); Chloride 108 mmol/L (98-107); Estimated CRCL calculation 115 ml/min; Estimated Glomerular Filt Rate > 60; Glucose 102 mg/dL (65-110); INR 1.1; Lipase 98 U/L (23-300); Potassium 3.6 mmol/L (3.4-5.0); Prothrombin Time 13.5 Seconds (11.1-14.7); Sodium 137 mmol/L (137-145)
[2021-09-05 02:06] LABS: Partial Thromboplastin Time 30.7 SECONDS (22.3-36.8)
[2021-09-05] MEDS: SODIUM CHLORIDE 0.9% IV 1,000 ML 999 ML IV CONT (02:14)
[2021-09-05 02:17] LABS: D Dimer < 0.27 ug/mL (<0.48)
[2021-09-05 02:19] LABS: Troponin I < 0.012 ng/mL (0.000-0.034)
[2021-09-05] MEDS: KETOROLAC 15 MG/ML VIAL (*BKC) IV PUSH (02:43)
[2021-09-05 03:28] VITALS: BP 134/92; PULSE 87; RESP 16; O2SAT 100
== END 2021-09-05 03:30 | disposition home or self-care (01) ==
PROVIDERS: Emergency Provider Emergency Medicine
DX: R07.89 Other chest pain (principal); R94.31 Abnormal electrocardiogram [ECG] [EKG]
CPT/HCPCS: 36415; 71046; 80053; 83690; 84484; 85025; 85380; 85610; 85730; 93005; 96365; 96375; 99284; J0131; J1885; J7030